=== PATIENT | female | born 1960 | race Two or more races ===

== ENCOUNTER 2023-06-11 07:11 | Emergency (ER) | payer OTHER ==
[~2023-06-11] VITALS: Ht 152.4 cm; Wt 86.2 kg
[2023-06-11 09:14] LABS: HEMATOCRIT 34.9 % (36.0-45.00); HEMOGLOBIN 11.7 g/dL (12.0-15.00); MEAN CELL VOLUME 88.8 fL (80.00-100.00); MEAN CORPUSCULAR HEMOGLOBIN 29.7 pg (27.00-32.0); MEAN CORPUSCULAR HGB CONC 33.4 g/dl (32.0-36.0); PLATELET COUNT 150 K/uL (150-450); RED BLOOD COUNT 3.93 M/uL (4.00-6.00); RED CELL DISTRIBUTION WIDTH 14.2 % (11.5-14.5)
[2023-06-11 09:43] LABS: CALCIUM 8.1 mg/dL (8.5-10.1); CREATININE SERUM 0.87 mg/dL (0.55-1.02); GFR 65.76; POTASSIUM 3.55 mEq/L (3.5-5.1)
[2023-06-11 13:10] LABS: PH,URINE 5.5 (5.0-8.0); URINE APPEARANCE Clear; URINE BILIRRUBIN Negative (NEGATIVE); URINE BLOOD Moderate; URINE COLOR Yellow; URINE GLUCOSE Negative (NEGATIVE); URINE LEUKOCYTE Small; URINE NITRATE Negative; URINE PROTEIN Trace (NEGATIVE); URINE UROBILINOGEN 0.2 E.U./dl
[2023-06-11 13:15] LABS: URINE BACTERIA 530.4 uL (0.0-1933); URINE EPITHELIAL CELLS 18.3 uL (0.0-38.8); URINE RBC 23.4 uL (0.0-20.8); URINE WBC 75.1 uL (0.0-23.2)
== END 2023-06-11 19:53 | disposition home or self-care (01) ==
LOC: ER 07:11
PROVIDERS: Emergency Medicine
DX: J09.X3 Influenza due to identified novel influenza A virus with gastrointestinal manifestations (principal); K52.89 Other specified noninfective gastroenteritis and colitis; Z88.0 Allergy status to penicillin

== ENCOUNTER 2025-04-22 10:07 | Outpatient (CLI) | payer OTHER | END 2025-04-22 10:08 | disposition home or self-care (01) | LOC: NUCLEAR 10:07 | PROVIDERS: ATTEND Internal Medicine Cardiovascular Disease | DX: M81.0 Age-related osteoporosis without current pathological fracture (principal) ==

== ENCOUNTER 2025-04-22 13:48 | Outpatient (CLI) | payer OTHER | END 2025-04-22 13:57 | disposition home or self-care (01) | LOC: MAMO-SONO 13:48 | PROVIDERS: ATTEND Internal Medicine Cardiovascular Disease | DX: N60.11 Diffuse cystic mastopathy of right breast (principal); N60.12 Diffuse cystic mastopathy of left breast; Z12.31 Encounter for screening mammogram for malignant neoplasm of breast ==

== ENCOUNTER → 2025-04-22 14:21 | Outpatient (CLI) | payer OTHER ==
[2025-04-22 09:19] LABS: URINE APPEARANCE Clear; URINE BILIRRUBIN Negative (NEGATIVE); URINE BLOOD Moderate; URINE COLOR Yellow; URINE GLUCOSE Negative (NEGATIVE); URINE KETONE Trace (NEGATIVE); URINE LEUKOCYTE Small; URINE NITRATE Negative; URINE PROTEIN Negative (NEGATIVE); URINE UROBILINOGEN 1.0 E.U./dl
[2025-04-22 09:21] LABS: URINE BACTERIA 110.3 uL (0.0-1933); URINE EPITHELIAL CELLS 22.2 uL (0.0-38.8); URINE RBC 103.8 uL (0.0-20.8); URINE WBC 19.0 uL (0.0-23.2)
[2025-04-22 09:26] LABS: URINE CAST 0.14 uL (0.0-1.40)
[2025-04-22 09:31] LABS: BASO % 0.8 % (0.1-1.2); EOS # 0.24 (0.04-0.54); EOS % 3.6 % (0.7-7.0); LYMPH # 1.56 (1.18-3.74); LYMPH % 23.5 % (19.3-53.1); MEAN PLATELET VOLUME 12.30 fl (9.4-12.4); MONO # 0.40 (0.24-0.82); MONO % 6.0 % (4.7-12.5); NEUT # 4.37 (1.56-6.13); NEUT % 65.9 % (34.0-71.1); RED CELL DISTRIBUTION WIDTH 14.0 % (11.6-14.4)
[2025-04-22 09:57] LABS: ob NEGATIVE (NEGATIVE)
[2025-04-22 10:34] LABS: ALT/SGPT 17.0 U/L (12-78); AST/SGOT 16.0 U/L (15-37); BILIRUBIN TOTAL 0.36 mg/dL (0.3-1.2); BUN CREA RATIO 20.0 (7.0-25.0); CHOL HDL RATIO 4.1 (0-5.0); CREATININE SERUM 1.02 mg/dL (0.55-1.02); GFR 54.39; GLOBULINA 3.3 G/DL (2.4-3.5); GLUCOSE FASTING 91.0 mg/dL (65-100); HDL 47.0 mg/dl (40-60); LDL 130.0 mg/dl (0-130); OSMOLALITY SERUM 289.0 MOSM/KG (275-295); T4 TOTAL 8.99 UG/DL (4.8-13.9); TSH 2.66 uIU/mL (0.358-3.74); VLDL 18.0 (0-39)
== END | disposition home or self-care (01) ==
LOC: LAB 08:23
PROVIDERS: ATTEND Internal Medicine Cardiovascular Disease
DX: E03.9 Hypothyroidism, unspecified (principal); I10 Essential (primary) hypertension; E78.9 Disorder of lipoprotein metabolism, unspecified; D64.0 Hereditary sideroblastic anemia; E55.9 Vitamin D deficiency, unspecified; M81.0 Age-related osteoporosis without current pathological fracture; R73.03 Prediabetes